=== PATIENT | male | born 1965 | race Hispanic/Latino ===

== ENCOUNTER 2018-09-28 04:34 | Emergency (ER) | payer OTHER ==
[2018-09-28] MEDS ORDERED: Lidocaine Viscous Sol 2% 15 ml UD Cup ONE ×2 (05:10→05:26)
[2018-09-28 05:19] LABS: #Lymphocytes 0.5 thou/uL (1.20-3.40); #Monocytes 0.2 thou/uL (0.11-0.59); #Neutrophils 6.5 thou/uL (1.40-6.50); %Basophils 0.1 % (0.0-1.0); %Eosinophils 0.4 % (0.0-10.0); %Lymphocytes 7.2 % (21.0-51.0); %Monocytes 2.3 % (0.0-10.0); Hemoglobin 11.3 g/dL (14.0-18.0); Mean Corpuscular Hemoglobin 29.1 pg (27.0-31.0); Mean Corpuscular Volume 88.3 fL (78.0-98.0); Platelet Count 196 thou/uL (130-400); RBC Distribution Width 13.1 % (11.5-14.5); Red Blood Cell (RBC) Count 3.87 mill/uL (4.70-6.10); White Blood Cell (WBC) Count 7.3 thou/uL (4.8-10.8)
[2018-09-28 05:23] LABS: INR-International Normal Ratio 2.7; PTT 35.1 SEC (22.9-36.1); Prothrombin Time 28.9 SEC (12.0-14.7)
[2018-09-28] MEDS ORDERED: Oxymetazoline HCl 0.05% (30 ML BOT) ONE (05:26)
[2018-09-28 05:38] LABS: ALT (SGPT) 22 U/L (8-55); AST (SGOT) 20 U/L (5-34); Albumin 3.8 g/dL (3.5-5.0); Alkaline Phosphatase 67 U/L (40-150); Anion Gap 12 mmol/L (10-20); BUN (Urea Nitrogen) 35 mg/dL (8.4-25.7); Bilirubin, Total 0.6 mg/dL (0.2-1.2); Calc. Creatinine Clearance 0 mL/min (70-130); Calcium 8.9 mg/dL (7.8-10.44); Carbon Dioxide 24 mmol/L (22-29); Chloride 108 mmol/L (98-107); Estimated GFR-MDRD 52; Globulin 2.3 g/dL (2.4-3.5); Glucose 143 mg/dL (70-105); Potassium 4.9 mmol/L (3.5-5.1); Protein, Total 6.1 g/dL (6.0-8.3); Sodium 139 mmol/L (136-145)
[2018-09-28] MEDS ORDERED: Silver Nitrate Application 1 EACH ONE (05:44)
[2018-09-28] MEDS ORDERED: Ondansetron PF 4 MG/2 ML Vial ONE (06:33)
[2018-09-28] MEDS ORDERED: Morphine 4 MG/ML VIAL ONE (06:34)
[2018-09-28] MEDS ORDERED: Cephalexin 250 MG CAP ONE (11:18)
--- NOTE | 2018-09-29 09:30 | HP ---
PRIMARY CARE DOCTOR: Dr. Luis Olivas. CODE STATUS: Full code. TIME OF EVALUATION: 08:15 p.m. CHIEF COMPLAINT: Epistaxis. HISTORY OF PRESENT ILLNESS: This is a 53-year-old male patient with past medical history of hemorrhagic stroke, atrial fibrillation, hyperlipidemia, high cholesterol, hypertension, chronic kidney disease, came to the hospital after having an episode of epistaxis. Symptoms started around 1600 hours, reported as mild to moderate. No clear triggers, no alleviating factors. The patient is on Coumadin due to atrial fibrillation, symptoms did not improve until the patient had a nasal packing. ENT has been consulted. We will follow recommendations. The patient has been placed in observation for that reason. REVIEW OF SYSTEMS: CONSTITUTIONAL: No fever, chills, or generalized weakness. RESPIRATORY: No cough, sputum production, or shortness of breath. HEENT: The patient has nasal bleeding, status post packing of the left nostril, that stopped the bleeding. CARDIOVASCULAR: No chest pain or palpitation. GASTROINTESTINAL: No nausea, vomiting, diarrhea, or abdominal pain. RADIOLOGY SPECIAL PROCEDURE TECH: No dizziness, headache, or feeling lightheaded. GENITOURINARY: No burning on urination. EXTREMITIES: No leg swelling. All other systems were reviewed and negative except for the findings mentioned above. PAST MEDICAL HISTORY: As mentioned in the HPI. FAMILY HISTORY: Reviewed and noncontributory for current presentation. PAST SURGICAL HISTORY: [place] holes from hemorrhagic stroke in 2015. PSYCHIATRIC HISTORY: Depression. SOCIAL HISTORY: No alcohol use. No drug use. No smoking history. KNOWN ALLERGIES: Amlodipine, lisinopril, and valsartan. REPORTED MEDICATIONS: 1. Nitroglycerin. 2. Oxybutynin. 3. Pantoprazole. 4. Sertraline. PHYSICAL EXAMINATION: VITAL SIGNS: On presentation, blood pressure 107/84 with heart rate 86, respiratory rate was 17, temperature 98.2 with pain , oxygen saturation 96% on room air. GENERAL APPEARANCE: The patient is alert, oriented, not in acute distress. HEENT: Eyes, normal conjunctivae. Moist oral mucosa. Anicteric. The patient has left nostril pack. There is no bleeding anymore. NECK: No JVD. RESPIRATORY: Bilateral air entry. No rales. No wheezes. Symmetric expansion. CARDIOVASCULAR: Normal rate. Regular rhythm. No murmurs. No gallop. No edema. ABDOMEN: Soft. Normal bowel sounds. MUSCULOSKELETAL: Baseline range of motion and strength. No tenderness. SKIN: Warm, intact. No pallor. No rash. No redness. Peripheral pulses are present. Capillary refill seems to intact. NEUROLOGIC: No evidence of any new focal weakness. Baseline speech. Cranial nerves seems to be intact. PSYCHIATRY: The patient is in good mood. No anxiety. [employer] judgment. DIAGNOSTIC DATA: Labs were reviewed. The patient has a white count of 14, hemoglobin 9.8, hematocrit 29.5, MCV 88.7, platelet count 236. Coagulation; the patient has an INR of 2.7. Chemistry; sodium 139, potassium 4.9, chloride 108, carbon dioxide 24, anion gap 12, BUN 35, creatinine 1.43, the previous one 1.35, GFR 52, glucose 143, calcium 8.9, total bilirubin 0.6, AST 20, ALT 22, alkaline phosphatase 67, serum total protein 6.1, albumin 3.8, globulin 2.3, albumin-globulin ratio is 1.7. ASSESSMENT AND PLAN: The patient will be placed in the hospital with following medical problems; 1. Epistaxis on the patient, who is on Coumadin for atrial fibrillation. The patient has left nostril pack, bleeding has stopped. ENT has been consulted. We will follow recommendations. We will hold Coumadin for now and also aspirin. 2. Acute blood loss anemia. Initial hemoglobin on presentation was 12.8, the last one was 9.8. At 08:00 p.m., the bleeding has stopped. We will monitor hemoglobin but likely to continue to drop. 3. Chronic anticoagulation due to underlying atrial fibrillation, Coumadin needs to be hold for now decides to correct INR. There will be no need for a bridge since the patient is anticoagulated for atrial fibrillation, so INR could be corrected. Then, once cleared by ENT, the patient could be started on anticoagulation if that is the plan from cnosultants. 4. Chronic kidney disease. The patient has stage 3 with GFR of 52. We will monitor kidney function, if seems to be stable, at this point. 5. History of atrial fibrillation, this is chronic, seems to be controlled, reconcile home medications. 6. Controlled hypertension, reconcile home medications. Adjust if needed. 7. Deep venous thrombosis prophylaxis. The patient is chronically anticoagulated. Job ID: [id number]
== END 2018-09-28 11:26 | disposition home or self-care (01) ==
LOC: ERS 04:34
DX: R04.0 Epistaxis (principal); I49.9 Cardiac arrhythmia, unspecified; I48.91 Unspecified atrial fibrillation; E78.5 Hyperlipidemia, unspecified; I10 Essential (primary) hypertension; F32.9 Major depressive disorder, single episode, unspecified; Z79.899 Other long term (current) drug therapy; Z86.73 Personal history of transient ischemic attack (TIA), and cerebral infarction without residual deficits; Z79.01 Long term (current) use of anticoagulants
CPT/HCPCS: 36415; 80053; 85025; 85610; 85730; J2270; J2405

== ENCOUNTER 2018-09-28 15:26 | Inpatient (IN) | payer MEDICARE, OTHER ==
[2018-09-28] MEDS ORDERED: Ondansetron ODT 4 MG TAB ONE (16:05)
[2018-09-28 17:17] LABS: #Lymphocytes 0.5 thou/uL (1.20-3.40); #Monocytes 0.6 thou/uL (0.11-0.59); #Neutrophils 12.9 thou/uL (1.40-6.50); %Eosinophils 0.1 % (0.0-10.0); %Lymphocytes 3.8 % (21.0-51.0); %Monocytes 4.4 % (0.0-10.0); %Neutrophils 91.7 % (42.0-75.0); Hemoglobin 10.7 g/dL (14.0-18.0); Mean Corpuscular HGB CONC 32.5 g/dL (32.0-36.0); Mean Corpuscular Hemoglobin 28.8 pg (27.0-31.0); Mean Corpuscular Volume 88.7 fL (78.0-98.0); Mean Platelet Volume 7.8 fL (7.4-10.4); Platelet Count 226 thou/uL (130-400); RBC Distribution Width 13.4 % (11.5-14.5); Red Blood Cell (RBC) Count 3.71 mill/uL (4.70-6.10)
[2018-09-28] MEDS ORDERED: Amoxicillin/Potassium Clav 875 MG TAB ONE (18:15)
[2018-09-28 19:58] VITALS: BMI 31.4
[2018-09-28] MEDS ORDERED: Sodium Chloride 0.9% 1,000 ML IV SCH (20:15)
[2018-09-28] MEDS ORDERED: Ondansetron PF 4 MG/2 ML Vial IVP PRN (20:47)
[2018-09-28] MEDS ORDERED: Ondansetron ODT 4 MG TAB PO PRN (20:47)
[2018-09-28] MEDS ORDERED: Nitroglycerin 0.4 MG TAB (25 Tab Bottle) SL PRN (20:48)
[2018-09-28 20:55] LABS: Hemoglobin 9.8 g/dL (14.0-18.0)
[2018-09-28] MEDS ORDERED: hydrALAZINE 10 MG TAB PO SCH (21:45)
[2018-09-28] MEDS ORDERED: Terazosin HCl 1 MG CAP PO SCH ×2 (21:45→22:00)
[2018-09-28] MEDS ORDERED: Carvedilol 25 MG TAB PO SCH (22:00)
[2018-09-28] MEDS ORDERED: Isosorbide Dinitrate 20 MG TAB PO SCH (22:00)
[2018-09-28] MEDS: Terazosin HCl 1 MG CAP PO SCH (22:09)
[2018-09-29 02:52] LABS: #Lymphocytes 0.6 thou/uL (1.20-3.40); #Monocytes 0.8 thou/uL (0.11-0.59); %Basophils 0.2 % (0.0-1.0); %Eosinophils 0.4 % (0.0-10.0); %Lymphocytes 6.6 % (21.0-51.0); %Monocytes 8.1 % (0.0-10.0); %Neutrophils 84.7 % (42.0-75.0); Hemoglobin 7.7 g/dL (14.0-18.0); Mean Corpuscular HGB CONC 33.5 g/dL (32.0-36.0); Mean Corpuscular Hemoglobin 29.6 pg (27.0-31.0); Mean Corpuscular Volume 88.5 fL (78.0-98.0); Mean Platelet Volume 6.8 fL (7.4-10.4); Platelet Count 192 thou/uL (130-400); RBC Distribution Width 13.6 % (11.5-14.5); White Blood Cell (WBC) Count 9.4 thou/uL (4.8-10.8)
[2018-09-29 02:58] LABS: INR-International Normal Ratio 2.9; Prothrombin Time 30.2 SEC (12.0-14.7)
[2018-09-29 03:18] LABS: Anion Gap 12 mmol/L (10-20); BUN (Urea Nitrogen) 45 mg/dL (8.4-25.7); Calc. Creatinine Clearance 73 mL/min (70-130); Calcium 7.9 mg/dL (7.8-10.44); Carbon Dioxide 21 mmol/L (22-29); Chloride 111 mmol/L (98-107); Estimated GFR-MDRD 54; Glucose 142 mg/dL (70-105); Potassium 4.1 mmol/L (3.5-5.1); Sodium 140 mmol/L (136-145)
[2018-09-29] MEDS: Isosorbide Dinitrate 20 MG TAB PO SCH ×2 (07:53→20:36)
[2018-09-29] MEDS: Atorvastatin Calcium 40 MG TAB PO SCH (07:53)
[2018-09-29] MEDS: Carvedilol 25 MG TAB PO SCH ×2 (07:55→16:52)
[2018-09-29] MEDS: Cyanocobalamin (Vitamin B-12) 1,000 MCG TAB PO SCH (07:55)
[2018-09-29] MEDS: Oxybutynin 5 MG TAB PO SCH (07:55)
[2018-09-29] MEDS: hydrALAZINE 10 MG TAB PO SCH ×2 (07:56→20:36)
[2018-09-29 08:37] LABS: Hemoglobin 6.2 g/dL (14.0-18.0); Platelet Count 217 thou/uL (130-400)
[2018-09-29 08:42] LABS: INR-International Normal Ratio 2.3; Prothrombin Time 25.4 SEC (12.0-14.7)
[2018-09-29] MEDS: REFRESH PLUS (Carboxymethylcellulose 0.5%) Opth Drops EA EYE SCH ×2 (08:49→12:44)
[2018-09-29] MEDS ORDERED: HUMAN PROTHROMBIN COMPLX IV SCH (09:30)
[2018-09-29] MEDS ORDERED: ADMIXTURE FEE IV SCH (09:30)
[2018-09-29] MEDS ORDERED: HUM PROTHROMBIN CPLX(PCC)4FACT 1,000 UNIT in Admixture Fee 40 EACH IV SCH (09:30)
[2018-09-29] MEDS ORDERED: Phytonadione 10 MG/ML AMP SLOW IVP SCH (09:30)
--- NOTE | 2018-09-29 09:30 | HP ---
PRIMARY CARE DOCTOR: Dr. Luis Olivas. CODE STATUS: Full code. TIME OF EVALUATION: 08:15 p.m. CHIEF COMPLAINT: Epistaxis. HISTORY OF PRESENT ILLNESS: This is a 53-year-old male patient with past medical history of hemorrhagic stroke, atrial fibrillation, hyperlipidemia, high cholesterol, hypertension, chronic kidney disease, came to the hospital after having an episode of epistaxis. Symptoms started around 1600 hours, reported as mild to moderate. No clear triggers, no alleviating factors. The patient is on Coumadin due to atrial fibrillation, symptoms did not improve until the patient had a nasal packing. ENT has been consulted. We will follow recommendations. The patient has been placed in observation for that reason. REVIEW OF SYSTEMS: CONSTITUTIONAL: No fever, chills, or generalized weakness. RESPIRATORY: No cough, sputum production, or shortness of breath. HEENT: The patient has nasal bleeding, status post packing of the left nostril, that stopped the bleeding. CARDIOVASCULAR: No chest pain or palpitation. GASTROINTESTINAL: No nausea, vomiting, diarrhea, or abdominal pain. BOX TOE BUFFER: No dizziness, headache, or feeling lightheaded. GENITOURINARY: No burning on urination. EXTREMITIES: No leg swelling. All other systems were reviewed and negative except for the findings mentioned above. PAST MEDICAL HISTORY: As mentioned in the HPI. FAMILY HISTORY: Reviewed and noncontributory for current presentation. PAST SURGICAL HISTORY: [place] holes from hemorrhagic stroke in 2015. PSYCHIATRIC HISTORY: Depression. SOCIAL HISTORY: No alcohol use. No drug use. No smoking history. KNOWN ALLERGIES: Amlodipine, lisinopril, and valsartan. REPORTED MEDICATIONS: 1. Nitroglycerin. 2. Oxybutynin. 3. Pantoprazole. 4. Sertraline. PHYSICAL EXAMINATION: VITAL SIGNS: On presentation, blood pressure 107/84 with heart rate 86, respiratory rate was 17, temperature 98.2 with pain , oxygen saturation 96% on room air. GENERAL APPEARANCE: The patient is alert, oriented, not in acute distress. HEENT: Eyes, normal conjunctivae. Moist oral mucosa. Anicteric. The patient has left nostril pack. There is no bleeding anymore. NECK: No JVD. RESPIRATORY: Bilateral air entry. No rales. No wheezes. Symmetric expansion. CARDIOVASCULAR: Normal rate. Regular rhythm. No murmurs. No gallop. No edema. ABDOMEN: Soft. Normal bowel sounds. MUSCULOSKELETAL: Baseline range of motion and strength. No tenderness. SKIN: Warm, intact. No pallor. No rash. No redness. Peripheral pulses are present. Capillary refill seems to intact. NEUROLOGIC: No evidence of any new focal weakness. Baseline speech. Cranial nerves seems to be intact. PSYCHIATRY: The patient is in good mood. No anxiety. [employer] judgment. DIAGNOSTIC DATA: Labs were reviewed. The patient has a white count of 14, hemoglobin 9.8, hematocrit 29.5, MCV 88.7, platelet count 236. Coagulation; the patient has an INR of 2.7. Chemistry; sodium 139, potassium 4.9, chloride 108, carbon dioxide 24, anion gap 12, BUN 35, creatinine 1.43, the previous one 1.35, GFR 52, glucose 143, calcium 8.9, total bilirubin 0.6, AST 20, ALT 22, alkaline phosphatase 67, serum total protein 6.1, albumin 3.8, globulin 2.3, albumin-globulin ratio is 1.7. ASSESSMENT AND PLAN: The patient will be placed in the hospital with following medical problems; 1. Epistaxis on the patient, who is on Coumadin for atrial fibrillation. The patient has left nostril pack, bleeding has stopped. ENT has been consulted. We will follow recommendations. We will hold Coumadin for now and also aspirin. 2. Acute blood loss anemia. Initial hemoglobin on presentation was 12.8, the last one was 9.8. At 08:00 p.m., the bleeding has stopped. We will monitor hemoglobin but likely to continue to drop. 3. Chronic anticoagulation due to underlying atrial fibrillation, Coumadin needs to be hold for now decides to correct INR. There will be no need for a bridge since the patient is anticoagulated for atrial fibrillation, so INR could be corrected. Then, once cleared by ENT, the patient could be started on anticoagulation if that is the plan from cnosultants. 4. Chronic kidney disease. The patient has stage 3 with GFR of 52. We will monitor kidney function, if seems to be stable, at this point. 5. History of atrial fibrillation, this is chronic, seems to be controlled, reconcile home medications. 6. Controlled hypertension, reconcile home medications. Adjust if needed. 7. Deep venous thrombosis prophylaxis. The patient is chronically anticoagulated. Job ID: [id number]
--- NOTE | 2018-09-29 11:50 | PDOC.EVN ---
Event Note - Event Note Event Note: Evaluated patient around 7;45 am, patient having active GI bleeding, hypotensive , tachycardic. Care discussed with Dr. Aleman. Transfer to [facility], urgent consult to GI. FFP, transfuse PRBC, recheck INR and H and H.
--- NOTE | 2018-09-29 12:03 | PRG ---
DATE OF SERVICE: 09/29/2018, TIME OF EVALUATION 7:45 am SUBJECTIVE: The patient is a very pleasant 53-year-old gentleman with past medical history significant for paroxysmal atrial fibrillation, on chronic anticoagulation with Coumadin, prior PR, CAD status post stents, prior hemorrhagic CVA, who presented to the hospital with complaints of epistaxis. This is the second presentation to the ER with such complaints, and balloon was placed in the left nare yesterday in the ER. The patient is seen this morning and complains of dizziness. He complains of GI bleeding, for the past 2 days. He continues to pass dark maroon stool this morning. He denies chest pain and shortness of breath at this time. OBJECTIVE: VITAL SIGNS: Blood pressure 105/65, pulse 130, O2 saturation 91% on room air. GENERAL: The patient is an ill-appearing gentleman, resting in bed. HEENT: Nares, positive for balloon present in left, tissue with noticeable. Blood in the right naris. CARDIOVASCULAR: S1 and S2. No appreciable murmurs, rubs, gallops. Regular rhythm. Tachycardic. LUNGS: Regular respiratory rate and pattern. Clear to auscultation bilaterally. ABDOMEN: Positive bowel sounds. Soft, no organomegaly. EXTREMITIES: No edema. Warm, well perfused. SKIN: No obvious rashes or abrasions. Noticeable pallor present. LABORATORY DATA: Labs on arrival to the hospital, hemoglobin was 10.7, now 7.7, white blood cell count 9.4, platelets are 192. INR 2.9. Sodium 140, potassium 4.1, chloride 111, carbon dioxide 21, anion gap 12, creatinine 1.39, glucose 142. ASSESSMENT: 1. Profound anemia secondary to active gastrointestinal bleeding/epistaxis. 2. Epistaxis. 3. Paroxysmal atrial fibrillation, on chronic anticoagulation with Coumadin, INR 2.9 on arrival. 4. History of hemorrhagic cerebrovascular accident in 2015, status post opal hole evacuation. 5. Prior myocardial infarction, unknown type. 6. Coronary artery disease, status post stenting in the past. 7. The patient states that he has had some type of colon surgery, records unavailable at this time. PLAN: The patient will be immediately transferred to [facility], stat H and H have been drawn along with INR. We will transfuse PRBC along with FFP. GI has been consulted. This patient has been seen in conjunction with Dr. Aleman. Job ID: [id number] [facility] CENTERLoren
[2018-09-29] MEDS: Acetaminophen 325 MG TAB PO PRN (12:50)
[2018-09-29 15:52] LABS: Hemoglobin 8.1 g/dL (14.0-18.0)
--- NOTE | 2018-09-29 16:55 | CON ---
DATE OF CONSULTATION: REASON FOR CONSULTATION: Anemia. HISTORY OF PRESENT ILLNESS: The patient is a 53-year-old male, who began having nasal bleeding and right red blood per rectum 2 days ago. He was initially seen in [place], but was transferred over here for further evaluation. At the time of this dictation, there is not a history and physical in the chart and the patient's previous records are at the [facility] in [place]. PAST MEDICAL HISTORY: 1. He has had a hemorrhagic stroke. 2. Atrial fibrillation. 3. Hyperlipidemia. 4. Hypertension. 5. Coronary artery disease with stent placement. PAST SURGICAL HISTORY: 1. [place] holes placed in the head due to the hemorrhagic stroke. 2. Some type of intestinal surgery while in the . SOCIAL HISTORY: Nonsmoker. Does not consume alcohol. He is currently retired. PSYCHIATRIC HISTORY: Remarkable for depression. ALLERGIES: AMLODIPINE AND LISINOPRIL. MEDICATIONS: Prior to admission: 1. Oxybutynin 5 mg daily. 2. Warfarin 7.5 mg Wednesday to , on Wednesday. 3. Aspirin 81 mg daily. 4. Atorvastatin 80 mg daily. 5. Triamterene 100 mg twice daily. 6. Nitroglycerin 0.4 mg sublingually as needed. 7. Pantoprazole 40 mg daily. 8. Sertraline 100 mg daily. 9. Terazosin 1 mg at bedtime as needed. 10. Carboxymethylcellulose sodium four times daily in the eye. 11. Carvedilol 12.5 mg b.i.d. 12. Vitamin B12 of 1000 mcg daily. 13. Hydralazine 10 mg twice daily. 14. Isosorbide dinitrate 10 mg twice daily. 15. daily. REVIEW OF SYSTEMS: Denies fever, chills, nausea, vomiting, or chest pain. He has had some hematemesis, some melena, and hematochezia. No hematuria. No dysuria. Remainder of 12-point review of systems is negative. PHYSICAL EXAMINATION: VITAL SIGNS: Temperature 98.4, pulse 110, blood pressure 106/65, and O2 saturation was 92% on room air. HEENT: Unremarkable except for nasal tampon in the left nostril. Oropharynx is clear. NECK: No adenopathy, JVD, or bruits. LUNGS: Clear to auscultation without wheezing or rhonchi. CARDIAC: S1 and S2 regular without audible murmur. ABDOMEN: Soft and nontender to palpation. EXTREMITIES: No clubbing, cyanosis, or edema. LABORATORY DATA: White blood cell count 9.4, hemoglobin 6.2, hematocrit 18.6, and platelet count 217. INR 2.3. Sodium 140, potassium 4.1, chloride 111, CO2 of 21, BUN 45, creatinine 1.4, and glucose 142. ASSESSMENT: 1. Nasal bleeding - this was packed in the emergency room. 2. Possible gastrointestinal bleeding versus nasal bleeding with swallowing excess blood in the stomach. 3. History of hypertension. 4. History of atrial fibrillation. 5. History of hemorrhagic stroke. 6. Chronically anticoagulated. PLAN: 1. The patient needs to be kept n.p.o. pending possible EGD. 2. Needs ENT and GI consultation. 3. He is about to receive blood. 4. Hospitalist team is written to reverse his anticoagulation. 5. The only thing I can see needs to be done differently is we need to get repeat H and Hs and repeat his coagulation parameters to make sure his anticoagulation is reversed. 6. He is on GI prophylaxis with Protonix. 7. The above encompassed 70 minutes time, of that time, greater than 50% spent with the patient and/or the patient's unit in the hospital. Job ID: [id number]
[2018-09-29] MEDS: Artificial Tear Sol 15 ML BOT EA EYE SCH ×2 (17:46→20:37)
[2018-09-29] MEDS: Terazosin HCl 1 MG CAP PO SCH (20:36)
[2018-09-29 20:55] LABS: Hemoglobin 7.3 g/dL (14.0-18.0)
[2018-09-29 20:59] LABS: INR-International Normal Ratio 1.3; Prothrombin Time 15.8 SEC (12.0-14.7)
--- NOTE | 2018-09-30 00:09 | CON ---
DATE OF CONSULTATION: 09/29/2018 CHIEF COMPLAINT: Blood in the stool. HISTORY OF PRESENT ILLNESS: Mr. Scott is a 53-year-old man, who started with epistaxis 2 or 3 days ago. Yesterday, he vomited some of the blood that he swallowed and came on into the emergency room. He is on anticoagulation for atrial fibrillation with warfarin. He has had no abdominal pain with this. He has had some nausea prior to admission, but none currently. This morning, he passed a large black bloody stool and then 2 more bloody stools after that. He became tachycardic and he was noted to drop his hemoglobin from 10.7 to 6.2. He was transferred to the [facility] and GI was consulted to rule out a concurrent GI bleed in addition to his epistaxis. He reports he did have a colonoscopy around 2011 with a couple of polyps removed at the [facility]. He has no other acute complaints now. PAST MEDICAL HISTORY: Stroke with some dysarthria, residual. Atrial fibrillation, hypertension, coronary artery disease, history of coronary stent placement. PAST SURGICAL HISTORY: [place] hole for hemorrhagic stroke. He had intestinal surgery in the past. FAMILY HISTORY: Negative for GI malignancy. SOCIAL HISTORY: No alcohol, tobacco, or drugs. He was in the [employer] for years and is now retired. His care has been at the [facility]. ALLERGIES: AMLODIPINE, LISINOPRIL. MEDICATIONS: Prior to admission, 1. Warfarin. 2. Oxybutynin. 3. Aspirin. 4. Atorvastatin. 5. Triamterene. 6. Terazosin. 7. Sertraline. 8. Carvedilol. 9. Carboxymethylcellulose to the eyes. 10. He has been on pantoprazole as an outpatient as well. REVIEW OF SYSTEMS: Negative x10 systems reviewed except as stated in the history of present illness. PHYSICAL EXAMINATION: VITAL SIGNS: Temperature 99.1, pulse 115, blood pressure 127/86. GENERAL: He is in no acute distress. Alert and oriented x3. He has a dressing in his left naris for the epistaxis. His oropharynx is clear without lesions. No cervical or supraclavicular lymphadenopathy. LUNGS: Clear to auscultation bilaterally. HEART: Tachycardic. S1, S2. ABDOMEN: Soft, nontender, and nondistended. Bowel sounds are present. No hepatomegaly. EXTREMITIES: No lower extremity edema. RECTAL: Reveals scant amount of black stool in the rectal vault. LABORATORY DATA: White blood cell count 9.4, hemoglobin was 6.2 this morning, up to 8.1 this afternoon after 2 units of transfusion. He also received 2 units of FFP. IMPRESSION: 1. Anemia of acute blood loss. 2. Epistaxis. 3. Hematemesis and melena. This is most likely secondary to the epistaxis. However, given that he has had a hemodynamically significant bleed requiring transfusion and has had hematemesis and melena with this, upper endoscopy to rule out a concurrent upper gastrointestinal bleeding source is reasonable. He has been on warfarin and has received FFP and today after the acute bleed, he received Kcentra. RECOMMENDATIONS: 1. Proton pump inhibitor. 2. EGD tomorrow. 3. Can have clear liquids this evening and then n.p.o. past midnight. Job ID: [id number]
[2018-09-30] MEDS: Carvedilol 25 MG TAB PO SCH ×2 (06:13→18:41)
[2018-09-30 06:54] LABS: Hemoglobin 7.2 g/dL (14.0-18.0)
[2018-09-30] MEDS: Artificial Tear Sol 15 ML BOT EA EYE SCH ×4 (09:12→20:25)
[2018-09-30] MEDS: Atorvastatin Calcium 40 MG TAB PO SCH (09:13)
[2018-09-30] MEDS: Cyanocobalamin (Vitamin B-12) 1,000 MCG TAB PO SCH (09:14)
[2018-09-30] MEDS: Isosorbide Dinitrate 20 MG TAB PO SCH ×2 (09:14→20:26)
[2018-09-30] MEDS: hydrALAZINE 10 MG TAB PO SCH ×2 (09:14→20:26)
[2018-09-30] MEDS: Oxybutynin 5 MG TAB PO SCH (09:15)
--- NOTE | 2018-09-30 09:45 | PRG ---
DATE OF SERVICE: 09/30/2018 SUBJECTIVE: The patient is doing reasonably well, had no acute complaints. He is still having some nasal bleeding. OBJECTIVE: VITAL SIGNS: Temperature 99.4, pulse 94, and blood pressure 147/103. A 24-hour intake 2720, output 2625. HEENT: He has some mild bleeding coming out of his left nostril around the rocket. NECK: No JVD. CHEST: Clear. CARDIAC: S1 and S2, regular. ABDOMEN: Soft. EXTREMITIES: No edema. LABORATORY DATA: Hemoglobin 7.2 and hematocrit 21.4. ASSESSMENT: 1. Nasal bleeding and possible gastrointestinal bleeding. 2. The patient chronically anticoagulated for history of atrial fibrillation and stroke. He has been reversed with Kcentra. PLAN: Await EGD. Probably needs ENT to more aggressively intervene. Job ID: [id number]
[2018-09-30 14:09] LABS: Hemoglobin 7.6 g/dL (14.0-18.0)
[2018-09-30] MEDS ORDERED: Ondansetron HCl/PF 4 MG/2 ML Vial IVP PRN (16:20)
[2018-09-30] MEDS ORDERED: Promethazine HCl 25 MG/ML VIAL IM PRN (16:20)
[2018-09-30] MEDS ORDERED: Promethazine HCl 25 MG/ML VIAL SLOW IVP PRN (16:20)
--- NOTE | 2018-09-30 16:28 | PDOC.PN ---
- Subjective Encounter Start Date: 09/30/18 Encounter Start Time: 09:40 Pt seen for followup re: anemia of acute blood loss. Says he feels better. - Objective Resuscitation Status - Order Detail: 09/28/18 20:47 Resuscitation Status Routine Resuscitation Status: FULL: Full Resuscitation MAR Reviewed: Yes Vital Signs & Weight: Vital Signs (12 hours) Temp Pulse Pulse Pulse BP BP BP 09/30/18 15:14 99.2 F 09/30/18 14:07 92 100 145/95 H 146/106 H 09/30/18 11:05 98.1 F 09/30/18 09:14 111 H 140/101 H 09/30/18 08:00 09/30/18 07:16 99.4 F 09/30/18 06:31 BP Pulse Ox Pulse Ox Pulse Ox 09/30/18 15:14 09/30/18 14:07 143/93 H 97 98 09/30/18 11:05 09/30/18 09:14 09/30/18 08:00 95 09/30/18 07:16 09/30/18 06:31 93 L Weight Weight 179 lb 14.4 oz Most Recent Monitor Data Heart Rate from ECG 93 NIBP 143/93 NIBP BP-Mean 109 Respiration from ECG 13 SpO2 96 I&O: 09/29/18 09/30/18 10/01/18 06:59 06:59 06:59 Intake Total 1970 2720 Output Total 1500 2625 Balance 470 95 Result Diagrams: 09/30/18 14:00 09/29/18 02:44 EKG Reviewed by me: Yes (Tele: NSR) Phys Exam - Physical Examination Obese HEENT: moist MMs, sclera anicteric, oral pharynx no lesions, 2+ tonsils Neck: supple Respiratory: clear to auscultation bilateral Cardiovascular: RRR, no rub S1, S2 Gastrointestinal: soft, non-tender, no distention, positive bowel sounds Neurological: moves all 4 limbs Psychiatric: normal affect Dx/Plan (1) Anemia associated with acute blood loss Code(s): D62 - ACUTE POSTHEMORRHAGIC ANEMIA Status: Acute Comment: secondary to epistaxis vs GI bleed (2) Symptomatic anemia Code(s): D64.9 - ANEMIA, UNSPECIFIED Status: Acute Comment: s/p pRBC transfusion, hemoglobin stable (3) GI bleed Code(s): K92.2 - GASTROINTESTINAL HEMORRHAGE, UNSPECIFIED Status: Acute Comment: GI bleed vs swallowed blood from epistaxis. Pt awaiting EGD. (4) Epistaxis Code(s): R04.0 - EPISTAXIS Status: Acute Comment: pt seen by ENT. Waiting for GED to be done before deciding to remove Rhino Rocket. (5) Dyslipidemia Code(s): E78.5 - HYPERLIPIDEMIA, UNSPECIFIED Status: Chronic Comment: continue statin (6) Coagulopathy Status: Resolved Comment: pt received FFP and K-centra - Plan plan discussed w/ family, DVT proph w/SCDs * . Review of Systems - Review of Systems Constitutional: negative: fever, chills, sweats, weakness, malaise ENT: Nose Discharge, Other (epistaxis). negative: Ear Pain, Ear Discharge, Nose Pain, Nose Congestion, Mouth Pain, Mouth Swelling, Throat Pain, Throat Swelling Respiratory: negative: Cough, Shortness of Breath, SOB with Excertion, Pleuritic Pain, Wheezing Cardiovascular: negative: chest pain, palpitations, orthopnea, paroxysmal nocturnal dyspnea, edema, light headedness Gastrointestinal: negative: Nausea, Vomiting, Abdominal Pain, Diarrhea, Constipation, Melena, Hematochezia Genitourinary: negative: Dysuria, Frequency, Incontinence, Hematuria, Retention - Medications/Allergies Allergies/Adverse Reactions: Allergies Allergy/AdvReac Type Severity Reaction Status Date / Time amlodipine Allergy Verified 09/28/18 20:02 lisinopril Allergy Verified 09/28/18 20:02 losartan Allergy Verified 09/28/18 20:02 valsartan Allergy Verified 09/28/18 20:02 Medications: Current Medications Acetaminophen (Tylenol) 650 mg PO Q4H PRN PRN Reason: Headache/Fever/Mild Pain (1-3) Last Admin: 09/29/18 12:50 Dose: 650 mg Artificial Tears (Liquitears 15ml Bottle) 1 drop EA EYE QID [facility] Last Admin: 09/30/18 14:22 Dose: Not Given Atorvastatin Calcium (Lipitor) 80 mg PO DAILY [facility] Last Admin: 09/30/18 09:13 Dose: 80 mg Carvedilol (Coreg) 12.5 mg PO BID-[facility] Last Admin: 09/30/18 06:13 Dose: 12.5 mg Cyanocobalamin (Vitamin B-12) 1,000 mcg PO DAILY [facility] Last Admin: 09/30/18 09:14 Dose: 1,000 mcg Fentanyl (Pacu-Sublimaze) 50 mcg SLOW IVP Q10MIN PRN PRN Reason: Moderate to Severe Pain (6-10) Stop: 09/30/18 19:20 Hydralazine HCl (Apresoline) 10 mg PO BID [facility] Last Admin: 09/30/18 09:14 Dose: 10 mg Isosorbide Dinitrate (Isordil) 10 mg PO BID [facility] Last Admin: 09/30/18 09:14 Dose: 10 mg Memantine (Namenda) 10 mg PO DAILY [facility] Last Admin: 09/30/18 09:15 Dose: 10 mg Nitroglycerin (Nitrostat) 0.4 mg SL Q5MIN PRN PRN Reason: Chest Pain Ondansetron HCl (Zofran Odt) 4 mg PO Q6H PRN PRN Reason: Nausea/Vomiting Ondansetron HCl (Zofran) 4 mg IVP Q6H PRN PRN Reason: Nausea/Vomiting Ondansetron HCl (Pacu-Zofran) 4 mg IVP ONE PRN PRN Reason: Nausea/Vomiting Stop: 09/30/18 19:20 Oxybutynin Chloride (Ditropan) 5 mg PO DAILY [facility] Last Admin: 09/30/18 09:15 Dose: 5 mg Pantoprazole Sodium (Protonix) 40 mg PO DAILY [facility] Last Admin: 09/30/18 09:15 Dose: 40 mg (Triamterene [ (Dyrenium] 100 Mg)) 1 each PO BID [facility] Promethazine HCl (Pacu-Phenergan) 6.25 mg SLOW IVP ONE PRN PRN Reason: Nausea/Vomiting Stop: 09/30/18 19:20 Promethazine HCl (Pacu-Phenergan) 6.25 mg IM ONE PRN PRN Reason: Nausea/Vomiting Stop: 09/30/18 19:20 Sertraline HCl (Zoloft) 100 mg PO DAILY [facility] Last Admin: 09/30/18 09:15 Dose: 100 mg Terazosin HCl (Hytrin) 1 mg PO HS [facility] Last Admin: 09/29/18 20:36 Dose: 1 mg
[2018-09-30] MEDS: Terazosin HCl 1 MG CAP PO SCH (20:26)
--- NOTE | 2018-09-30 23:16 | OP ---
DATE OF PROCEDURE: 09/30/2018 PROCEDURE: Esophagogastroduodenoscopy. PREOPERATIVE DIAGNOSIS: Hematemesis. DESCRIPTION OF PROCEDURE: Informed consent was obtained from the patient. He was sedated with total intravenous anesthesia. The bite block was placed and the endoscope was advanced easily to the second portion of the duodenum and retroflexion was performed in the stomach. The esophagus was normal. The GE junction was normal. The stomach was normal including retroflex views overall. There were couple of small blood clots in the fundus that appeared to have been swallowed. There was a minimal snake skin appearance to a small portion of the fundus. The pylorus and first and second portions of the duodenum were normal. IMPRESSION: 1. Normal EGD. 2. Couple of small blood clots were noted in the fundus and appeared to have been swallowed. 3. The hematemesis appears to be primarily from his epistaxis. RECOMMENDATIONS: 1. Further management per ENT. 2. I will sign off. Please call if GI can help. Job ID: [id number]
[2018-10-01 09:59] LABS: #Basophils 0.1 thou/uL (0.0-0.2); #Eosinphils 0.2 thou/uL (0.0-0.7); #Lymphocytes 1.2 thou/uL (1.20-3.40); #Monocytes 0.5 thou/uL (0.11-0.59); #Neutrophils 4.6 thou/uL (1.40-6.50); %Basophils 0.8 % (0.0-1.0); %Eosinophils 2.6 % (0.0-10.0); %Lymphocytes 17.7 % (21.0-51.0); %Monocytes 7.3 % (0.0-10.0); %Neutrophils 71.5 % (42.0-75.0); Hemoglobin 7.4 g/dL (14.0-18.0); Mean Corpuscular HGB CONC 33.3 g/dL (32.0-36.0); Mean Corpuscular Volume 90.2 fL (78.0-98.0); Mean Platelet Volume 6.8 fL (7.4-10.4); Platelet Count 167 thou/uL (130-400); RBC Distribution Width 13.4 % (11.5-14.5); Red Blood Cell (RBC) Count 2.47 mill/uL (4.70-6.10); White Blood Cell (WBC) Count 6.5 thou/uL (4.8-10.8)
[2018-10-01] MEDS: Artificial Tear Sol 15 ML BOT EA EYE SCH ×4 (10:07→20:38)
[2018-10-01] MEDS: Atorvastatin Calcium 40 MG TAB PO SCH (10:08)
[2018-10-01] MEDS: Carvedilol 25 MG TAB PO SCH ×2 (10:08→17:38)
[2018-10-01] MEDS: Isosorbide Dinitrate 20 MG TAB PO SCH ×2 (10:09→20:37)
[2018-10-01] MEDS: Cyanocobalamin (Vitamin B-12) 1,000 MCG TAB PO SCH (10:09)
[2018-10-01] MEDS: hydrALAZINE 10 MG TAB PO SCH ×2 (10:09→20:36)
[2018-10-01] MEDS: Oxybutynin 5 MG TAB PO SCH (10:10)
[2018-10-01 10:19] LABS: Anion Gap 10 mmol/L (10-20); BUN (Urea Nitrogen) 19 mg/dL (8.4-25.7); Calc. Creatinine Clearance 88 mL/min (70-130); Calcium 8.5 mg/dL (7.8-10.44); Carbon Dioxide 30 mmol/L (22-29); Chloride 104 mmol/L (98-107); Estimated GFR-MDRD 67; Glucose 121 mg/dL (70-105); Potassium 3.1 mmol/L (3.5-5.1); Sodium 141 mmol/L (136-145)
--- NOTE | 2018-10-01 12:44 | PRG ---
DATE OF SERVICE: 10/01/2018 SERVICE: Pulmonary Medicine. INTERVAL HISTORY: The patient is doing really well from a bleeding standpoint. He has a rocket in the left naris still. That being said, there has been no significant bleeding. EGD was negative yesterday. He denies any current fevers or chills. He has a good appetite. PHYSICAL EXAMINATION: VITAL SIGNS: Afebrile with a T-max of 99.7 overnight. Pulse 100, blood pressure 109/85, respirations 15, and saturation 93% on room air. GENERAL: The patient is awake and alert, in no apparent distress. LUNGS: Excellent air entry without any prolonged expiratory phase or wheezing. HEART: Normal rate. Regular. ABDOMEN: Soft, nontender, and nondistended. Bowel sounds are positive. MUSCULOSKELETAL: No cyanosis or clubbing. No pitting in the bilateral lower extremities. NEUROLOGIC: Grossly nonfocal. LABORATORY DATA: Potassium 3.1. Basic metabolic profile is otherwise unremarkable. Creatinine is downtrending to 1.15. INR 1.3. Hemoglobin is stable at 7.4. Occult blood is positive. ASSESSMENT: 1. Acute blood loss anemia. 2. Epistaxis. 3. Atrial fibrillation with history of stroke, on chronic anticoagulation. DISCUSSION AND PLAN: We will wait to hear from the [facility], N[facility], and Throat. If they would like for me to remove the nasal rocket, more than happy to do so. Obviously, if rebleeding occurs, it will need to go back in. Pulmonary/Critical Care will continue to follow along in this location, but from my perspective, he is stable for transition out of the [facility] to the medical unit. I will replace the potassium, check a magnesium tomorrow morning, and repeat hemoglobin in the morning. Job ID: [id number]
[2018-10-01] MEDS: Potassium Chloride 20 MEQ TAB PO SCH ×2 (12:53→17:38)
--- NOTE | 2018-10-01 18:24 | PDOC.PN ---
- Subjective Encounter Start Date: 10/01/18 Encounter Start Time: 10:40 Pt seen for followup re: acute blood loss anemia. Feels better. - Objective Resuscitation Status - Order Detail: 09/28/18 20:47 Resuscitation Status Routine Resuscitation Status: FULL: Full Resuscitation MAR Reviewed: Yes Vital Signs & Weight: Vital Signs (12 hours) Temp Pulse BP BP Pulse Ox 10/01/18 14:51 98.5 F 10/01/18 12:45 119/79 10/01/18 10:34 99.0 F 10/01/18 10:09 111 H 140/101 H 10/01/18 07:54 95 10/01/18 07:11 99.0 F Weight Weight 179 lb 14.4 oz Most Recent Monitor Data Heart Rate from ECG 100 NIBP 119/79 NIBP BP-Mean 92 Respiration from ECG 18 SpO2 93 I&O: 09/30/18 10/01/18 10/02/18 06:59 06:59 06:59 Intake Total 2720 1200 Output Total 2625 2350 600 Balance 95 -1150 -600 Result Diagrams: 10/01/18 09:48 10/01/18 09:48 EKG Reviewed by me: Yes (Tele: NSR) Phys Exam - Physical Examination Constitutional: NAD HEENT: moist MMs rhink rocket Neck: supple Respiratory: clear to auscultation bilateral Cardiovascular: RRR Gastrointestinal: soft Neurological: moves all 4 limbs Psychiatric: normal affect Dx/Plan (1) Anemia associated with acute blood loss Code(s): D62 - ACUTE POSTHEMORRHAGIC ANEMIA Status: Acute Comment: secondary to epistaxis, hemoglobin stable (2) Symptomatic anemia Code(s): D64.9 - ANEMIA, UNSPECIFIED Status: Acute Comment: s/p pRBC transfusion, hemoglobin stable (3) Epistaxis Code(s): R04.0 - EPISTAXIS Status: Acute Comment: ENT following (4) Dyslipidemia Code(s): E78.5 - HYPERLIPIDEMIA, UNSPECIFIED Status: Chronic Comment: continue statin (5) Coagulopathy Status: Resolved (6) GI bleed Code(s): K92.2 - GASTROINTESTINAL HEMORRHAGE, UNSPECIFIED Status: Ruled-out Comment: s/p EGD yesterday - Plan * . Review of Systems - Review of Systems Cardiovascular: negative: chest pain, palpitations, orthopnea, paroxysmal nocturnal dyspnea, edema, light headedness Gastrointestinal: negative: Nausea, Vomiting, Abdominal Pain, Diarrhea, Constipation, Melena, Hematochezia - Medications/Allergies Allergies/Adverse Reactions: Allergies Allergy/AdvReac Type Severity Reaction Status Date / Time amlodipine Allergy Verified 09/28/18 20:02 lisinopril Allergy Verified 09/28/18 20:02 losartan Allergy Verified 09/28/18 20:02 valsartan Allergy Verified 09/28/18 20:02 Medications: Current Medications Acetaminophen (Tylenol) 650 mg PO Q4H PRN PRN Reason: Headache/Fever/Mild Pain (1-3) Last Admin: 09/29/18 12:50 Dose: 650 mg Artificial Tears (Liquitears 15ml Bottle) 1 drop EA EYE QID [facility] Last Admin: 10/01/18 17:38 Dose: 1 applic Atorvastatin Calcium (Lipitor) 80 mg PO DAILY [facility] Last Admin: 10/01/18 10:08 Dose: 80 mg Carvedilol (Coreg) 12.5 mg PO BID-[facility] Last Admin: 10/01/18 17:38 Dose: 12.5 mg Cyanocobalamin (Vitamin B-12) 1,000 mcg PO DAILY [facility] Last Admin: 10/01/18 10:09 Dose: 1,000 mcg Hydralazine HCl (Apresoline) 10 mg PO BID [facility] Last Admin: 10/01/18 10:09 Dose: 10 mg Isosorbide Dinitrate (Isordil) 10 mg PO BID [facility] Last Admin: 10/01/18 10:09 Dose: 10 mg Memantine (Namenda) 10 mg PO DAILY [facility] Last Admin: 10/01/18 10:09 Dose: 10 mg Nitroglycerin (Nitrostat) 0.4 mg SL Q5MIN PRN PRN Reason: Chest Pain Ondansetron HCl (Zofran Odt) 4 mg PO Q6H PRN PRN Reason: Nausea/Vomiting Ondansetron HCl (Zofran) 4 mg IVP Q6H PRN PRN Reason: Nausea/Vomiting Oxybutynin Chloride (Ditropan) 5 mg PO DAILY [facility] Last Admin: 10/01/18 10:10 Dose: 5 mg Pantoprazole Sodium (Protonix) 40 mg PO DAILY [facility] Last Admin: 10/01/18 10:10 Dose: 40 mg (Triamterene [ (Dyrenium] 100 Mg)) 1 each PO BID [facility] Sertraline HCl (Zoloft) 100 mg PO DAILY [facility] Last Admin: 10/01/18 10:10 Dose: 100 mg Terazosin HCl (Hytrin) 1 mg PO HS [facility] Last Admin: 09/30/18 20:26 Dose: 1 mg
[2018-10-01] MEDS: Terazosin HCl 1 MG CAP PO SCH (20:38)
[2018-10-02 05:52] LABS: Anion Gap 11 mmol/L (10-20); BUN (Urea Nitrogen) 21 mg/dL (8.4-25.7); Calc. Creatinine Clearance 74 mL/min (70-130); Calcium 8.5 mg/dL (7.8-10.44); Carbon Dioxide 28 mmol/L (22-29); Chloride 106 mmol/L (98-107); Estimated GFR-MDRD 55; Glucose 103 mg/dL (70-105); Magnesium 1.8 mg/dL (1.6-2.6); Potassium 3.6 mmol/L (3.5-5.1); Sodium 141 mmol/L (136-145)
[2018-10-02] MEDS: Artificial Tear Sol 15 ML BOT EA EYE SCH ×4 (09:34→20:52)
[2018-10-02] MEDS: Carvedilol 25 MG TAB PO SCH ×2 (09:34→17:29)
[2018-10-02] MEDS: Cyanocobalamin (Vitamin B-12) 1,000 MCG TAB PO SCH (09:35)
[2018-10-02] MEDS: Atorvastatin Calcium 40 MG TAB PO SCH (09:35)
[2018-10-02] MEDS: Isosorbide Dinitrate 20 MG TAB PO SCH ×2 (09:36→20:53)
[2018-10-02] MEDS: hydrALAZINE 10 MG TAB PO SCH ×2 (09:36→20:53)
[2018-10-02] MEDS: Oxybutynin 5 MG TAB PO SCH (09:37)
[2018-10-02] MEDS ORDERED: Potassium Chloride 20 MEQ TAB PO SCH (11:45)
--- NOTE | 2018-10-02 12:05 | PRG ---
DATE OF SERVICE: 10/02/2018 SERVICE: Pulmonary Medicine. INTERVAL HISTORY: The patient is doing fine from respiratory standpoint. No additional bleeding events have occurred. Denies any current chest pain, fevers , or chills. Otherwise, there has been no interval change to his condition. PHYSICAL EXAMINATION: VITAL SIGNS: Afebrile, pulse 86, blood pressure 115/79, respirations 22, and saturation 93% on room air. GENERAL: The patient is awake and alert, in no apparent distress. LUNGS: Excellent air entry with no prolonged expiratory phase or wheezing present. HEART: Normal rate and regular. ABDOMEN: Soft, nontender, and nondistended. Bowel sounds are positive. MUSCULOSKELETAL: No cyanosis or clubbing. No pitting in the bilateral lower extremities. NEUROLOGIC: Grossly nonfocal. LABORATORY DATA: Potassium 3.6, but otherwise, basic metabolic profile is essentially unremarkable. Creat gently up trending to 1.36, which is close to his baseline. Hemoglobin 7.0. ASSESSMENT: 1. Acute blood loss anemia. 2. Epistaxis. 3. Atrial fibrillation with history of stroke, on chronic anticoagulation. DISCUSSION AND PLAN: The patient is doing absolutely fantastic from a bleeding standpoint. At this point, he has no further requirements for inpatient Pulmonary/Critical Care opinion, so when he leaves the [facility], we will likely sign off. Hopefully, he will be discharged today. [facility] I have encouraged him to keep these appointments. Job ID: [id number] MTDD
[2018-10-02 12:14] LABS: Hemoglobin 6.8 g/dL (14.0-18.0)
--- NOTE | 2018-10-02 15:07 | PDOC.PN ---
- Subjective Encounter Start Date: 10/02/18 Encounter Start Time: 15:05 Pt seen for followup re; acute blood loss anemia. No complaints today. - Objective Resuscitation Status - Order Detail: 09/28/18 20:47 Resuscitation Status Routine Resuscitation Status: FULL: Full Resuscitation MAR Reviewed: Yes Vital Signs & Weight: Vital Signs (12 hours) Temp Pulse Pulse Ox 10/02/18 11:23 99.0 F 10/02/18 09:36 86 10/02/18 08:00 96 10/02/18 07:16 99.1 F 10/02/18 04:00 99.4 F Weight Weight 179 lb 14.4 oz Most Recent Monitor Data Heart Rate from ECG 88 NIBP 115/79 NIBP BP-Mean 91 Respiration from ECG 22 SpO2 93 I&O: 10/01/18 10/02/18 10/03/18 06:59 06:59 06:59 Intake Total 1200 940 Output Total 2350 1700 Balance -1150 -760 Result Diagrams: 10/02/18 12:06 10/02/18 04:24 EKG Reviewed by me: Yes (Tele: NSR) Phys Exam - Physical Examination Obese HEENT: moist MMs Neck: supple Respiratory: clear to auscultation bilateral Cardiovascular: RRR Gastrointestinal: soft Neurological: moves all 4 limbs Psychiatric: normal affect Dx/Plan (1) Anemia associated with acute blood loss Code(s): D62 - ACUTE POSTHEMORRHAGIC ANEMIA Status: Acute Comment: hemoglobin drifting doen, will transfuse 2 units pRBC and recheck (2) Symptomatic anemia Code(s): D64.9 - ANEMIA, UNSPECIFIED Status: Acute Comment: will transfuse two units pRBC (3) Epistaxis Code(s): R04.0 - EPISTAXIS Status: Acute Comment: Rhino rocket removed, no further epistaxis (4) Dyslipidemia Code(s): E78.5 - HYPERLIPIDEMIA, UNSPECIFIED Status: Chronic Comment: on statin (5) Coagulopathy Status: Resolved - Plan * . Review of Systems - Review of Systems Cardiovascular: negative: chest pain, palpitations, orthopnea, paroxysmal nocturnal dyspnea, edema, light headedness Gastrointestinal: negative: Nausea, Vomiting, Abdominal Pain, Diarrhea, Constipation, Melena, Hematochezia - Medications/Allergies Allergies/Adverse Reactions: Allergies Allergy/AdvReac Type Severity Reaction Status Date / Time amlodipine Allergy Verified 09/28/18 20:02 lisinopril Allergy Verified 09/28/18 20:02 losartan Allergy Verified 09/28/18 20:02 valsartan Allergy Verified 09/28/18 20:02 Medications: Current Medications Acetaminophen (Tylenol) 650 mg PO Q4H PRN PRN Reason: Headache/Fever/Mild Pain (1-3) Last Admin: 09/29/18 12:50 Dose: 650 mg Artificial Tears (Liquitears 15ml Bottle) 1 drop EA EYE QID [facility] Last Admin: 10/02/18 14:51 Dose: 1 applic Atorvastatin Calcium (Lipitor) 80 mg PO DAILY [facility] Last Admin: 10/02/18 09:35 Dose: 80 mg Carvedilol (Coreg) 12.5 mg PO BID-[facility] Last Admin: 10/02/18 09:34 Dose: 12.5 mg Cyanocobalamin (Vitamin B-12) 1,000 mcg PO DAILY [facility] Last Admin: 10/02/18 09:35 Dose: 1,000 mcg Hydralazine HCl (Apresoline) 10 mg PO BID [facility] Last Admin: 10/02/18 09:36 Dose: 10 mg Isosorbide Dinitrate (Isordil) 10 mg PO BID [facility] Last Admin: 10/02/18 09:36 Dose: 10 mg Memantine (Namenda) 10 mg PO DAILY [facility] Last Admin: 10/02/18 09:36 Dose: 10 mg Nitroglycerin (Nitrostat) 0.4 mg SL Q5MIN PRN PRN Reason: Chest Pain Ondansetron HCl (Zofran Odt) 4 mg PO Q6H PRN PRN Reason: Nausea/Vomiting Ondansetron HCl (Zofran) 4 mg IVP Q6H PRN PRN Reason: Nausea/Vomiting Oxybutynin Chloride (Ditropan) 5 mg PO DAILY [facility] Last Admin: 10/02/18 09:37 Dose: 5 mg Pantoprazole Sodium (Protonix) 40 mg PO DAILY [facility] Last Admin: 10/02/18 09:37 Dose: 40 mg (Triamterene [ (Dyrenium] 100 Mg)) 1 each PO BID [facility] Sertraline HCl (Zoloft) 100 mg PO DAILY [facility] Last Admin: 10/02/18 09:37 Dose: 100 mg Terazosin HCl (Hytrin) 1 mg PO [facility] Last Admin: 10/01/18 20:38 Dose: 1 mg
[2018-10-02] MEDS: Terazosin HCl 1 MG CAP PO SCH (20:54)
[2018-10-02] MEDS: Acetaminophen 325 MG TAB PO PRN (23:29)
[2018-10-03 00:02] VITALS: BP 136/97
[2018-10-03 05:50] LABS: #Eosinphils 0.3 thou/uL (0.0-0.7); #Lymphocytes 1.1 thou/uL (1.20-3.40); #Monocytes 0.4 thou/uL (0.11-0.59); #Neutrophils 3.3 thou/uL (1.40-6.50); %Basophils 0.7 % (0.0-1.0); %Eosinophils 5.8 % (0.0-10.0); %Lymphocytes 21.3 % (21.0-51.0); %Monocytes 7.3 % (0.0-10.0); %Neutrophils 64.9 % (42.0-75.0); Mean Corpuscular HGB CONC 33.6 g/dL (32.0-36.0); Mean Corpuscular Hemoglobin 29.9 pg (27.0-31.0); Mean Corpuscular Volume 88.7 fL (78.0-98.0); Mean Platelet Volume 7.5 fL (7.4-10.4); Platelet Count 177 thou/uL (130-400); RBC Distribution Width 14.3 % (11.5-14.5)
[2018-10-03] MEDS: Atorvastatin Calcium 40 MG TAB PO SCH (09:19)
[2018-10-03] MEDS: Isosorbide Dinitrate 20 MG TAB PO SCH (09:19)
[2018-10-03] MEDS: Oxybutynin 5 MG TAB PO SCH (09:19)
[2018-10-03] MEDS: Cyanocobalamin (Vitamin B-12) 1,000 MCG TAB PO SCH (09:19)
[2018-10-03] MEDS: Carvedilol 25 MG TAB PO SCH (09:19)
[2018-10-03] MEDS: hydrALAZINE 10 MG TAB PO SCH (09:20)
[2018-10-03] MEDS: Artificial Tear Sol 15 ML BOT EA EYE SCH (09:20)
[2018-10-03 11:02] LABS: Anion Gap 10 mmol/L (10-20); BUN (Urea Nitrogen) 18 mg/dL (8.4-25.7); Calc. Creatinine Clearance 93 mL/min (70-130); Calcium 8.7 mg/dL (7.8-10.44); Carbon Dioxide 27 mmol/L (22-29); Chloride 105 mmol/L (98-107); Estimated GFR-MDRD 72; Glucose 100 mg/dL (70-105); Potassium 3.6 mmol/L (3.5-5.1); Sodium 138 mmol/L (136-145)
[2018-10-03 11:08] VITALS: TEMP 98.4
--- NOTE | 2018-10-04 03:19 | DIS ---
DATE OF ADMISSION: 09/28/2018 DATE OF DISCHARGE: 10/03/2018 PRIMARY CARE PROVIDER: Dr. Luis Olivas. DISCHARGE DIAGNOSES: 1. Anemia of acute blood loss. 2. Symptomatic anemia. 3. Epistaxis. 4. Hypotension. CONDITION OF PATIENT ON THE DAY OF DISCHARGE: Stable. I assessed Mr. Scott on the day of discharge. He denies any chest pain or shortness of breath. He denies any blood in stool. He denies any nosebleed. Vital signs are stable. S1 and S2 are heard, regular. Lungs are clear to auscultation bilaterally. CONSULTATIONS DURING THIS HOSPITALIZATION: 1. Gastroenterology, Dr. Martin. 2. Pulmonology, Dr. Butler. 3. ENT, Dr. Murrell. DISCHARGE MEDICATIONS: He has been advised to discuss with his primary care provider and web design intern as to when to start his warfarin. His discharge medications include: 1. Nitroglycerin p.r.n. 2. Aspirin 81 mg daily. 3. Lipitor 40 mg daily. 4. Refresh Plus Tears one to each eye 4 times a day. 5. Coreg 12.5 mg 2 times a day. 6. Vitamin B12 of 1000 mcg daily. 7. Hydralazine 10 mg 2 times a day. 8. Isosorbide dinitrate 10 mg 2 times a day. 9. Namenda 10 mg daily. 10. Oxybutynin 5 mg daily. 11. Protonix 40 mg daily. 12. Sertraline 50 mg daily. 13. Terazosin 1 mg at bedtime. 14. Triamterene 100 mg 2 times a day. HOSPITAL COURSE: Mr. Scott is a pleasant 53-year-old gentleman, who was admitted to [facility] on 09/28/2018, by Dr. Mayen. He was initially admitted for epistaxis. Following admission, he was found to be hypotensive, tachycardic with blood in stool. ENT Service was consulted at the time of admission. Gastroenterology and Pulmonary and Critical Care Medicine Services were also consulted. He was transferred to [facility]. He received packed RBCs. He underwent EGD, which was normal. He had a couple of small blood clots in the fundus. The patient also had hematemesis. It appeared that his episode of GI bleed was mainly from epistaxis. ENT Service saw the patient. Nasal packing was removed. The patient's hemoglobin initially drifted down and he received further blood transfusions. He has been advised to discuss with his primary care provider as to when to resume his warfarin. If he has GI bleed again, it may be worthwhile to consider lower GI endoscopy. On the day of discharge, Mr. Scott has white count 5000, hemoglobin 9, platelet count 177,000, and normal chem-7. Many thanks for allowing me to participate in your patient's care. Please feel free to contact me with any questions or concerns. DISCHARGE DESTINATION: Home. TOTAL AMOUNT OF TIME SPENT COORDINATING THIS DISCHARGE: 32 minutes. Job ID: [id number]
== END 2018-10-03 12:39 | disposition home or self-care (01) | DRG 812 ==
LOC: ERS 15:26 → 2SW 19:44 → OBSVTOIN 19:44 → IMCU/EMU 09-29 08:40
PROVIDERS: ADMIT Internal Medicine; ATTEND Internal Medicine
PROC: 2Y41X5Z Packing of Nasal Region using Packing Material (ICD-10-PCS; principal; 2018-09-28)
PROC: 30233N1 Transfusion of Nonautologous Red Blood Cells into Peripheral Vein, Percutaneous Approach (ICD-10-PCS; 2018-09-29)
PROC: 30233L1 Transfusion of Nonautologous Fresh Plasma into Peripheral Vein, Percutaneous Approach (ICD-10-PCS; 2018-09-29)
PROC: 30283B1 Transfusion of Nonautologous 4-Factor Prothrombin Complex Concentrate into Vein, Percutaneous Approach (ICD-10-PCS; 2018-09-29)
PROC: 0DJ08ZZ Inspection of Upper Intestinal Tract, Via Natural or Artificial Opening Endoscopic (ICD-10-PCS; 2018-09-30)
DX: D62 Acute posthemorrhagic anemia (principal); D68.32 Hemorrhagic disorder due to extrinsic circulating anticoagulants; R04.0 Epistaxis; I48.0 Paroxysmal atrial fibrillation; T45.515A Adverse effect of anticoagulants, initial encounter; I12.9 Hypertensive chronic kidney disease with stage 1 through stage 4 chronic kidney disease, or unspecified chronic kidney disease; N18.3 Chronic kidney disease, stage 3 (moderate); I95.9 Hypotension, unspecified; I25.10 Atherosclerotic heart disease of native coronary artery without angina pectoris; E78.00 Pure hypercholesterolemia, unspecified; I25.2 Old myocardial infarction; F32.9 Major depressive disorder, single episode, unspecified; Z86.73 Personal history of transient ischemic attack (TIA), and cerebral infarction without residual deficits; Z95.5 Presence of coronary angioplasty implant and graft; Z79.01 Long term (current) use of anticoagulants; Z88.8 Allergy status to other drugs, medicaments and biological substances
CPT/HCPCS: 30903; 30905; 36415; 36430; 80048; 80053; 82274; 83735; 85014; 85018; 85025; 85610; 85730; 86850; 86900; 86901; 93306; 96360; 96374; 96375; C9132; J2270; J2405; J3430; P9016; P9059; Q0162